=== PATIENT | female | born 1955 | race American Indian/Alaskan Native ===

== ENCOUNTER 2018-02-10 10:25 | Emergency (ER) | payer MEDICARE ==
[2018-02-10 11:39] VITALS: BP 135/103
[2018-02-10] MEDS ORDERED: DUONEB *Not for PRN Use IH ONE (13:17)
[2018-02-10] MEDS ORDERED: DELTASONE PO ONE (13:17)
--- NOTE | 2018-02-10 14:01 | XRay Report ---
Chest 2 views: History: Dyspnea. Findings: Normal cardiomediastinal silhouette. The trachea is midline. Suspicion of infiltrate or partial atelectasis of right middle lobe. Normal CP angles. Bilateral emphysema. Impression: Suspicion of infiltrate or partial atelectasis right middle lobe. For confirmation of the above findings CT scan may be recommended.
[2018-02-10] MEDS ORDERED: ROCEPHIN IM ONE (14:59)
[2018-02-10] MEDS ORDERED: XYLOCAINE 1% MPF 5 mL INFILTRATI ONE (14:59)
--- NOTE | 2018-02-10 14:59 | Emergency Department Report ---
Chief Complaint: Dyspnea/Respdistress Stated Complaint: COPD Time Seen by Provider: 02/10/18 13:10 - HPI History of Present Illness: The patient is a 62-year-old female with a significant history of COPD, who presents for laceration of dyspnea. The patient reports recurrence of worsening of dyspnea from baseline for the past one day. She also reports a mildly productive cough for the past one day. The patient denies fever, neck pain, parasthesias, hemoptysis, palpitations, dizziness, syncope, unilateral leg swelling, calf muscle pain. She shares that [place] and needs arrangement of home O2. - Exam Vital Signs: Vital Signs 02/10/18 11:33 Temperature 97.4 F L Pulse Rate 94 H Respiratory 20 Rate Blood Pressure 135/103 O2 Sat by Pulse 96 Oximetry MSE screening note: Focused history and physical exam performed. Due to findings the following was ordered: ED Disposition for MSE Condition: Stable Referrals: PRIMARY CARE, [Primary Care Provider] - 3-5 Days
--- NOTE | 2018-02-10 14:59 | Emergency Department Report ---
- General Chief Complaint: Dyspnea/Respdistress Stated Complaint: COPD Time Seen by Provider: 02/10/18 13:10 Source: patient, family Mode of arrival: Wheelchair Limitations: Physical Limitation - History of Present Illness Initial Comments: This is a 62-year-old female nontoxic, well nourished in appearance, no acute signs of distress presents to the ED with c/o of shortness of breathe, wheezing , and dyspnea. Patient reports slight worsening of dyspnea since yesterday. Patient also stated has productive cough for the past day. Patient denies any fever, chest pain, abdominal pain, nausea, vomiting, parasthesias, hemoptysis , palpitations, dizziness, syncope, unilateral leg swelling, calf muscle pain. Patient also stated she came into the ED for a arrangement of home O2 as she has COPD. Patient sated she just moved from a different state. MD Complaint: cough, rhinorrhea, nasal congestion -: days(s) (1) Severity: mild Consistency: constant Improves With: nothing Worsens With: nothing Associated Symptoms: rhinorrhea, nasal congestion, cough, shortness of breath. denies: fever, chills, myalgias, diaphoresis, headache, sore throat, stiff neck , chest pain, abdominal pain, nausea, vomiting, diarrhea, dysuria, rash, confusion, right sweats, weight loss, epistaxis, hoarseness, ear pain Treatments Prior to Arrival: none - Related Data Previous Rx's Medication Instructions Recorded Last Taken Type ALBUTEROL Inhaler [ProAir HFA 2 puff IH QID PRN #1 inhalation 02/10/18 Unknown Rx Inhaler] Levofloxacin [Levaquin TAB] 750 mg PO QDAY #7 tablet 02/10/18 Unknown Rx Prednisone [predniSONE 10 mg 10 mg PO .TAPER #1 tab.ds.pk 02/10/18 Unknown Rx (6-Day Pack, 21 Tabs)] Allergies Allergy/AdvReac Type Severity Reaction Status Date / Time tuberculin,PPD,multi-puncture Allergy Rash Verified 02/10/18 11:33 ED Review of Systems ROS: Stated complaint: COPD Other details as noted in HPI Constitutional: denies: chills, fever Eyes: denies: eye pain, eye discharge, vision change ENT: denies: ear pain, throat pain Respiratory: cough, shortness of breath, wheezing Cardiovascular: denies: chest pain, palpitations Endocrine: no symptoms reported Gastrointestinal: denies: abdominal pain, nausea, diarrhea Genitourinary: denies: urgency, dysuria, discharge Musculoskeletal: denies: back pain, joint swelling, arthralgia Skin: denies: rash, lesions Neurological: denies: headache, weakness, paresthesias Psychiatric: denies: anxiety, depression Hematological/Lymphatic: denies: easy bleeding, easy bruising ED Past Medical Hx - Past Medical History Previous Medical History?: Yes Hx COPD: Yes Additional medical history: Gastric ulcers, Right shooulder pain - Surgical History Past Surgical History?: Yes Additional Surgical History: Colonoscopy with polyps found - Social History Smoking Status: Current Every Day Smoker Substance Use Type: Alcohol, Prescribed - Medications Home Medications: Home Medications Medication Instructions Recorded Confirmed Last Taken Type ALBUTEROL Inhaler [ProAir HFA 2 puff IH QID PRN #1 inhalation 02/10/18 Unknown Rx Inhaler] Levofloxacin [Levaquin TAB] 750 mg PO QDAY #7 tablet 02/10/18 Unknown Rx Prednisone [predniSONE 10 mg 10 mg PO .TAPER #1 tab.ds.pk 02/10/18 Unknown Rx (6-Day Pack, 21 Tabs)] ED Physical Exam - General Limitations: Physical Limitation General appearance: alert, in no apparent distress - Head Head exam: Present: atraumatic, normocephalic - Eye Eye exam: Present: normal appearance, PERRL, EOMI Pupils: Present: normal accommodation - ENT ENT exam: Present: normal exam, normal orophraynx, mucous membranes moist, TM's normal bilaterally, normal external ear exam - Neck Neck exam: Present: normal inspection, full ROM. Absent: tenderness, meningismus, lymphadenopathy, thyromegaly - Respiratory Respiratory exam: Present: normal lung sounds bilaterally, wheezes (bilateral upper and lower lobes). Absent: respiratory distress, rales, rhonchi, stridor, chest wall tenderness, accessory muscle use, decreased breath sounds, prolonged expiratory - Cardiovascular Cardiovascular Exam: Present: regular rate, normal rhythm, normal heart sounds. Absent: irregular rhythm, systolic murmur, diastolic murmur, rubs, gallop - GI/Abdominal GI/Abdominal exam: Present: soft, normal bowel sounds. Absent: distended, tenderness, guarding, rebound, rigid, diminished bowel sounds - Rectal Rectal exam: Present: deferred - Extremities Exam Extremities exam: Present: normal inspection, full ROM, normal capillary refill. Absent: tenderness, pedal edema, joint swelling, calf tenderness - Back Exam Back exam: Present: normal inspection, full ROM. Absent: tenderness, CVA tenderness (R), CVA tenderness (L), muscle spasm, paraspinal tenderness, vertebral tenderness, rash noted - Neurological Exam Neurological exam: Present: alert, oriented X3, CN II-XII intact, normal gait, reflexes normal - Psychiatric Psychiatric exam: Present: normal affect, normal mood - Skin Skin exam: Present: warm, dry, intact, normal color. Absent: rash ED Course Vital Signs 02/10/18 02/10/18 11:33 15:25 Temperature 97.4 F L Pulse Rate 94 H Respiratory 20 24 Rate Blood Pressure 135/103 O2 Sat by Pulse 96 87 Oximetry - Reevaluation(s) Reevaluation #1: 02/10/18 15:03 Patient is speaking in full sentences with no signs of distress noted. - Consultations Consultation #1: 02/10/18 15:04 Patient has been consulted with Dr. Bess about patient history, physical exam, and labs and examined and screened patient and agrees to ED plan of care and discharge plan of care. ED Medical Decision Making - Medical Decision Making This is a 62-year-old female that presents with PNA. Patient is stable and was examined by me and Dr. Bess. Chest x-ray has been obtained dictated by cardiology with possible suspicion of infiltrates. Patient did receive prednisone in the ED and 1 g of Rocephin. Patient is requesting for home oxygen and so a outreach and education social worker has been consulted. Patient is discharged with Levaquin, prednisone, and albuterol. Patient received nebulizer treatment in ED would be stated symptoms of wheezing has subsided and shortness of breath has resolved. There is no calf pain or calf tenderness. Wells criteria are 0 points for DVT/PE. Patient was instructed to Follow-up with a primary care doctor in 3-5 days or if symptoms worsen and continue return to emergency room as soon as possible. At time of discharge, the patient does not seem toxic or ill in appearance. No acute signs of distress noted. Patient agrees to discharge treatment plan of care. No further questions noted by the patient. reforestation worker was consulted about patients need for oxygen and stated she set up for a delivery of O2 to her house. Critical care attestation.: If time is entered above; I have spent that time in minutes in the direct care of this critically ill patient, excluding procedure time. ED Disposition Clinical Impression: PNA (pneumonia) Qualifiers: Pneumonia type: due to unspecified organism Laterality: right Lung location: middle lobe of lung Qualified Code(s): J18.1 - Lobar pneumonia, unspecified organism Disposition: TO HOME OR SELFCARE Is pt being admited?: No Does the pt Need Aspirin: No Condition: Stable Instructions: Bacterial Pneumonia (ED) Additional Instructions: Follow-up with a primary care doctor in 3-5 days or if symptoms worsen and continue return to emergency room as soon as possible. Prescriptions: ALBUTEROL Inhaler [ProAir HFA Inhaler] 2 puff IH QID PRN #1 inhalation PRN Reason: Shortness Of Breath Levofloxacin [Levaquin TAB] 750 mg PO QDAY #7 tablet Prednisone [predniSONE 10 mg (6-Day Pack, 21 Tabs)] 10 mg PO .TAPER #1 tab.ds.pk Referrals: PRIMARY CAREMD [Primary Care Provider] - 3-5 Days FANNY BURGESS MD [Staff Physician] - 3-5 Days [facility] [Outside] - 3-5 Days [facility] [Outside] - 3-5 Days
== END 2018-02-10 15:40 | disposition home or self-care (01) ==
LOC: ED 10:25
DX: J18.1 Lobar pneumonia, unspecified organism (principal); J44.9 Chronic obstructive pulmonary disease, unspecified; F17.200 Nicotine dependence, unspecified, uncomplicated
CPT/HCPCS: 71046; 96372; 99283; J0696; J7512

== ENCOUNTER 2018-02-24 10:07 | Outpatient (CLI) | payer MEDICARE ==
--- NOTE | 2018-02-24 15:13 | Cat Scan Report ---
CT CHEST WITHOUT CONTRAST INDICATION: COPD. COMPARISON: 02/10/2018 CXR. FINDINGS: Noncontrast chest CT limited due to motion artifact, though suggests normal heart size. No effusions. Patent central airway. Assessment of the great vessels and for detecting subtle lymphadenopathy limited due to lack of IV contrast. However, no aortic aneurysm. Few atherosclerotic calcifications noted. Pulmonary arterial hypertension. Few noncalcified mediastinal lymph nodes, including paratracheal and AP window with the largest precarinal lymph node approximately 2 x 1 cm, axial image 51, series 2. No size significant axillary lymphadenopathy. Normal imaged thyroid. Bilateral emphysematous changes, greatest involving the upper lobes. Chronic changes/fibrosis involves the right middle lobe and the lingula, also extending superiorly along the major fissure on the left. Nonspecific distal esophageal wall prominence/thickening, not excluded for gastroesophageal reflux and/or hiatal hernia, amongst others. Cholecystectomy clips. Multilevel spinal degenerative changes/spurring. CONCLUSION: No definite acute chest CT abnormality on this unenhanced exam with COPD and various other findings, including right middle lobe and lingular scarring, correlating to recent CXR appearance, as described above. Please also correlate clinically and with more remote chest imaging, if available. Thank you for the opportunity to participate in this patient's care.
== END 2018-02-24 10:08 | disposition home or self-care (01) ==
LOC: CT 10:07
PROVIDERS: ATTEND Internal Medicine Pulmonary Disease
DX: J44.9 Chronic obstructive pulmonary disease, unspecified (principal); I27.21 Secondary pulmonary arterial hypertension; I70.0 Atherosclerosis of aorta; R91.8 Other nonspecific abnormal finding of lung field; Z90.49 Acquired absence of other specified parts of digestive tract
CPT/HCPCS: 71250